=== PATIENT | female | born 1935 | race Caucasian/White ===

== ENCOUNTER → 2017-01-16 13:21 | Outpatient (CLI) | payer MEDICARE, OTHER ==
[2014-11-21 12:39] VITALS: BMI 18.4
[~2017-01-16 13:21] MED LIST: ALDACTONE25 MG PO; ALEVE220 MG PO; ASPIRIN EC81 M1 PO; ASPIRIN325 MG PO; BAYER CHEWABLE81 MG PO; BETAPACE 80 MG80 MG PO; CLEOCIN HCL300 MG PO; COREG 3.1253.125 MG PO; HYDROCODON-ACE1 EAC7 PO; LANOXIN125 MCG PO; LASIX20 MG PO; LOPRESSOR25 MG; PLAVIX75 MG PO; PRILOSEC20 MG PO; ULTRAM50 MG PO; XARELTO10 MG PO; XARELTO15 MG PO
== END | disposition home or self-care (01) ==
LOC: D.CT 13:21
DX: I65.29 Occlusion and stenosis of unspecified carotid artery (principal)

== ENCOUNTER 2017-08-03 19:55 | Inpatient (IN) | payer MEDICARE, OTHER ==
[~2017-08-03] VITALS: Ht 160 cm; Wt 48.5 kg
--- NOTE | ~2017-08-03 | CN ---
PATIENT NAME:NOEL LEBRON MEDICAL RECORD: [id number] : 31 LOCATION:D.[facility] ADMIT DATE: 08/03/17 ACCOUNT: [id number] CONSULTING PHYSICIAN: BARRY RIOS MD REFERRING PHYSICIAN: DON BENNETT MD DATE OF CONSULTATION: 08/06/2017 HISTORY OF PRESENT ILLNESS: This is an 82-year-old female who fell and broke her hip at home. She had some confusion and had a head CT on admission. Head CT demonstrated a right frontal calcified mass consistent with meningioma and right to left midline shift. She had no apparent neurologic deficit from the meningioma and orthopedics was consulted and she was taken to the operating room for surgery. PAST MEDICAL HISTORY: Includes [place], coronary artery disease, coronary artery bypass graft times 4, atrial fibrillation, currently everyday tobacco use and ethanol. REVIEW OF SYSTEMS: Negative. ALLERGIES: CELEBREX AND HYDROCODONE. CURRENT MEDICATIONS: Plavix 75 mg p.o. daily and Lasix 20 mg p.o. daily. FAMILY HISTORY: No known family history. PAST SURGICAL HISTORY: Cataracts, hysterectomy, coronary artery bypass graft times 4. PHYSICAL EXAMINATION: NEUROLOGIC: Alert and oriented times 2. Cranial nerves II-XII were intact. Motor strength is 5/5 and equal in all 4 extremities to detailed testing. DTRs are 2+ and equal over biceps, triceps, patellar, and Achilles. NECK: Shows full range of motion, nontender. ABDOMEN: Soft, nontender, nondistended. LABORATORY DATA: Head CT demonstrates a 4.5 cm calcified right frontal mass with compression of the right frontal lobe and right to left midline shift approximately 0.5 cm with mild surrounding edema in the right hip, status post open reduction internal fixation. IMPRESSION: Right frontal calcified meningioma status post right ORIF of a hip fracture. PLAN: She is to follow up with me in 6 weeks' time with an MRI of the brain with and without contrast, I will see her on an outpatient basis. Thank you for the consultation. TRANSINT:[id number] Voice Confirmation ID: [id number] DOCUMENT ID: [id number] CONSULT REPORT [id number] NOEL LEBRON Dax BARRY RIOS MD at 1134 CC: [id number] DICTATION DATE: 08/06/171818 DENTIST: 08/06/173 ADM IN [facility] [address] [place] [address]
--- NOTE | ~2017-08-03 | OP ---
PATIENT NAME: NOEL LEBRON MEDICAL RECORD: [id number] :33 LOCATION:D.MS [facility] ADMISSION DATE:08/03/17 SURGEON: BANG TOTH MD DATE OF OPERATION: 08/05/2017 PREOPERATIVE DIAGNOSIS: Displaced right hip fracture, femoral neck. POSTOPERATIVE DIAGNOSIS: Displaced right hip fracture, femoral neck. PROCEDURE: Bipolar endoprosthetic replacement for displaced right hip femoral neck fracture. SURGEON: Bang Toth MD ANESTHESIA: General. INTRAOPERATIVE COMPLICATIONS: None. SUMMARY OF PATHOLOGIC FINDINGS: The patient has a completely displaced femoral neck fracture consistent with preoperative diagnosis. IMPLANTS USED: Francesca Anato hip system, size 4 stem, -3 x 26 inner head with a size 45 outer head. OPERATIVE SUMMARY IN DETAIL: After obtaining the appropriate preoperative orthopedic surgery consent as well as anesthetic consultation, evaluation and clearance, the patient was brought to the operating room and placed on the operating room table in supine position. After adequate general laryngeal mask airway was administered, the patient was placed in left lateral decubitus position. All pressure points were well padded. She was held firmly to the operating table using the vacuum pack suction system. Right lower extremity and hip were then prepped and draped in a routine sterile fashion. Curvilinear incision was made over the greater trochanter, taken down to level of IT band. It was split in line with fibers of the IT band to reveal gluteus medius and minimus attachment. This reflected the gluteus medius and minimus reflected anteriorly revealing the hip capsule, split in T-type capsule revealing fracture hematoma. Split T-type capsule, through the split capsule was then visualized femoral neck fracture. Femoral neck cut was made using the femoral neck cutting guide for the Anato system. All fragments were removed. At this point, the power corkscrew was used to evacuate the femoral head from the acetabulum. This was used for the appropriate measurements for replacement. Copiously irrigation was utilized to wash out the acetabulum of all fragments. Attention was then turned to the proximal femur. After punching and reaming, it was felt that a size 4 Anato hip was the most appropriate. This was tamped into place. Trials were undertaken and it was felt that the -3 was the most appropriate for leg length and maintenance. The bipolar and inner bone were articulated, tamped on the Baez taper and the hip was reduced. Intraoperative radiographs were taken and showed excellent position and placement of all components. Wounds were copiously irrigated. The hip capsule was closed with #2 Ethibond followed by #5 transosseous reapproximation of the gluteus medius and minimus back to the greater trochanter. The IT band was closed with #2 Ethibond. This was followed by #1 Vicryl, 2-0 Vicryl and Zip tie suture. Having completed this, the patient was awakened and taken to the recovery room in stable condition. All final needle and sponge counts were correct. OPERATIVE REPORT [id number] NOEL LEBRON TRANSINT:[id number] Voice Confirmation ID: [id number] DOCUMENT ID: [id number] NAVNEET TRIVEDI, BANG ESTRADA at 1808 CC: [id number] DICTATION DATE: 08/05/17 1529 ACADEMIC ASSOCIATE: 08/05/17 1622 ADM IN [facility] [address] [place] [address]
--- NOTE | ~2017-08-03 | EC ---
PATIENT:NOEL LEBRON DATE OF SERVICE: 08/03/17 SEX: F MEDICAL RECORD: [id number] DATE OF : 31 LOCATION:D.[facility] AGE OF PATIENT: 82 ADMISSION DATE: 08/03/17 REFERRING PHYSICIAN: INTERPRETING PHYSICIAN: LINDA JOSEPH MD ECHOCARDIOGRAM REPORT ECHO CHARGES 4 ECHO COMPLETE DATE: CLINICAL DIAGNOSIS: PRE-OP ECHOCARDIOGRAPHIC MEASUREMENTS (adult normal given) AC root (d.<3.7cm) 2.4 cm LV Septum d (<1.2 cm> 0.7 cm Valve Excursion 1.8 cm LV Septum (systole) 1.1 cm Left Atria (s.<4.0cm> 3.7 cm LVPW d(<1.2cm) 1.1 cm RV (d.<2.3cm) 2.5 cm LVPW (sytole) 1.5 cm LV diastole(<5.6CM) 4.0 cm MV E-F(>70mm/sec) cm LV systole 2.3 cm LVOT Diameter 1.6 cm MV exc.(>10mm) cm Est.ejection fraction (50-75%) % DOPPLER: LVIT cm/sec A 52.0 cm/sec E 90.0 cm/sec LA cm/sec RVSP 39.0 mmHg LVOT 80.0 cm/sec AOP1/2T m/s Asc. Ao 133 cm/sec RVOT 72.0 cm/sec RA cm/sec PA 98.0 cm/sec AV Gradient Peak 7.1 mmHg AV Mean 3.3 mmHg AV Area 1.3 cm MV Gradient Peak 5.8 mmHg MV Mean 2.4 mmHg MV Area cm COMMENTS: Electronic Scale Assembler And Tester: Myranda MOSEROE Steam Train Driver: Elmer Joseph TAPE# PACS Pericardial Effusion N DATE OF SERVICE: 08/05/2017 PROCEDURE: Transthoracic echocardiogram. FINDINGS: 1. Left ventricle shows an EF of 35% to 40%. There appears to be apical anterior and apical inferior hypokinesis, also lateral hypokinesis. 2. The left atrium is shown to have normal size, normal function. 3. The aortic valve is normal. 4. The mitral valve is normal. ECHOCARDIOGRAM REPORT [id number] NOEL LEBRON 5. The tricuspid valve has moderate tricuspid regurgitation with an RVSP of 39 mmHg. 6. The right ventricle is normal size, normal function. 7. The right atrium is mildly dilated. 8. The pulmonic valve is normal. CONCLUSION: The patient has evidence of regional wall motion abnormalities that would be consistent with ischemic coronary disease. EF is moderately reduced in the 35% to maybe as much as 40% range. There is somewhat asynchronous wall motion due to possible bundle branch block. TRANSINT:[id number] Voice Confirmation ID: [id number] DOCUMENT ID: [id number] LINDA JOSEPH MD at 0924 CC: [id number] DICTATION DATE: 08/05/17 0950 LEATHER SCRUBBER: 08/05/17 1124 ADM IN [address] [place] [address]
[2017-08-03 21:24] LABS: BASOPHILS 0.1 % (0-2); EOSINOPHILS 0 % (0-7); HEMATOCRIT 32.7 % (36.0-48.0); IMMATURE GRANULOCYTES 0.2 % (0-5); LYMPHOCYTES 7.8 % (15-50); MCH 32.1 pg (26.0-34.0); MCHC 33.6 g/dL (31.0-37.0); MCV 95.3 fL (80.0-100.0); MEAN PLATELET VOLUME 10.1 fL (7.4-10.4); MONOCYTES 12.2 % (2-11); NEUTROPHILS 79.7 % (40-80); PLATELET COUNT 225 10x3/uL (130-400); RBC 3.43 10x6/uL (4.00-5.40); RDW 13.7 % (11.5-14.5); WBC 9.7 10x3/uL (4.8-10.8)
[2017-08-03 21:34] LABS: APTT 24.3 SECONDS (22.8-39.4); INR 1.13 (0.85-1.17); PROTIME 14.1 SECONDS (11.6-15.0)
[2017-08-03 21:39] LABS: ALKALINE PHOSPHATASE 107 U/L (46-116); ALT (SGPT) 31 U/L (10-68); BILIRUBIN - TOTAL 1.37 mg/dL (0.2-1.3); CALC OSMOLALITY 275 mosm/kg (275-300); CALCIUM 9.4 mg/dL (8.5-10.1); CARBON DIOXIDE 26.9 mmol/L (21.0-32.0); CHLORIDE - SERUM 100 mmol/L (98-107); GLUCOSE 142 mg/dL (74-106); POTASSIUM - SERUM 3.9 mmol/L (3.5-5.1); PROTEIN - SERUM 8.3 g/dL (6.4-8.2); SODIUM 136 mmol/L (136-145); UREA NITROGEN 19 mg/dL (7-18); eGFR NON AFRICAN AMERICAN 56 mL/min (90-120)
[2017-08-03 22:00] LABS: CKMB 16.1 U/L (0.0-3.6); CREATINE KINASE 1191 UL (21-215); TROPONIN-I < 0.017 ng/mL (0.000-0.060)
[2017-08-03 23:17] LABS: APPEARANCE CLEAR (CLEAR); COLOR YELLOW (YELLOW); GLUCOSE NEGATIVE (NEGATIVE); KETONE SMALL mg/dL (NEGATIVE); NITRITE NEGATIVE (NEGATIVE); PROTEIN NEGATIVE (NEGATIVE); UROBILINOGEN NORMAL (NORMAL)
[2017-08-03 23:18] LABS: BILIRUBIN NEGATIVE (NEGATIVE)
[2017-08-03 23:21] VITALS: BP 137/65; BMI 18.9
[2017-08-04 00:46] VITALS: BP 137/65
[2017-08-04 05:19] VITALS: BP 139/86
[2017-08-04 08:08] VITALS: BP 139/80
[2017-08-04 09:15] LABS: BASOPHILS 0.1 % (0-2); EOSINOPHILS 0 % (0-7); HEMATOCRIT 32.6 % (36.0-48.0); HEMOGLOBIN 10.6 g/dL (12-16); IMMATURE GRANULOCYTES 0.2 % (0-5); LYMPHOCYTES 12.7 % (15-50); MCH 31.4 pg (26.0-34.0); MCHC 32.5 g/dL (31.0-37.0); MCV 96.4 fL (80.0-100.0); MEAN PLATELET VOLUME 10.1 fL (7.4-10.4); MONOCYTES 12.1 % (2-11); NEUTROPHILS 74.9 % (40-80); PLATELET COUNT 205 10x3/uL (130-400); RBC 3.38 10x6/uL (4.00-5.40); RDW 13.9 % (11.5-14.5)
[2017-08-04 09:27] LABS: ANION GAP 13.3 mmol/L (8-16); CALCIUM 8.6 mg/dL (8.5-10.1); POTASSIUM - SERUM 4.3 mmol/L (3.5-5.1)
[2017-08-04 11:52] VITALS: BP 129/71
[2017-08-04 15:29] VITALS: BP 130/70
[2017-08-04 20:00] VITALS: BP 112/67
[2017-08-05] VITALS (12 sets, daily range): BP systolic 105–130; BP diastolic 47–75; Ht 160 cm; Wt 48.5 kg
[2017-08-05 04:36] LABS: BASOPHILS 0.1 % (0-2); EOSINOPHILS 0.3 % (0-7); HEMATOCRIT 31.1 % (36.0-48.0); HEMOGLOBIN 9.9 g/dL (12-16); IMMATURE GRANULOCYTES 0.3 % (0-5); LYMPHOCYTES 16.4 % (15-50); MCH 30.8 pg (26.0-34.0); MCHC 31.8 g/dL (31.0-37.0); MCV 96.9 fL (80.0-100.0); MEAN PLATELET VOLUME 10.3 fL (7.4-10.4); MONOCYTES 11.9 % (2-11); PLATELET COUNT 192 10x3/uL (130-400); RBC 3.21 10x6/uL (4.00-5.40); RDW 14.1 % (11.5-14.5); WBC 9.5 10x3/uL (4.8-10.8)
[2017-08-05 04:48] LABS: ALBUMIN 2.9 g/dL (3.4-5.0); ANION GAP 13.8 mmol/L (8-16); BILIRUBIN - TOTAL 1.03 mg/dL (0.2-1.3); CREATININE - SERUM 0.9 mg/dL (0.6-1.3); POTASSIUM - SERUM 3.8 mmol/L (3.5-5.1); PROTEIN - SERUM 6.7 g/dL (6.4-8.2)
[2017-08-06] VITALS (7 sets, daily range): BP systolic 114–129; BP diastolic 66–83
[2017-08-06 04:34] LABS: BASOPHILS 0 % (0-2); EOSINOPHILS 0 % (0-7); HEMATOCRIT 29.1 % (36.0-48.0); HEMOGLOBIN 9.5 g/dL (12-16); IMMATURE GRANULOCYTES 0.1 % (0-5); LYMPHOCYTES 7.4 % (15-50); MCH 31.6 pg (26.0-34.0); MCHC 32.6 g/dL (31.0-37.0); MCV 96.7 fL (80.0-100.0); MEAN PLATELET VOLUME 10.3 fL (7.4-10.4); NEUTROPHILS 82.5 % (40-80); PLATELET COUNT 196 10x3/uL (130-400); RBC 3.01 10x6/uL (4.00-5.40); RDW 13.6 % (11.5-14.5); WBC 7.4 10x3/uL (4.8-10.8)
[2017-08-06 05:20] LABS: ALBUMIN 2.6 g/dL (3.4-5.0); ANION GAP 17.6 mmol/L (8-16); CALCIUM 8.1 mg/dL (8.5-10.1); CARBON DIOXIDE 19.8 mmol/L (21.0-32.0); CREATININE - SERUM 0.9 mg/dL (0.6-1.3); PROTEIN - SERUM 6.8 g/dL (6.4-8.2)
[2017-08-06 05:23] LABS: POTASSIUM - SERUM 4.4 mmol/L (3.5-5.1)
[2017-08-07 05:03] VITALS: BP 124/74
[2017-08-07 05:08] LABS: BASOPHILS 0.1 % (0-2); EOSINOPHILS 0 % (0-7); HEMATOCRIT 28.1 % (36.0-48.0); HEMOGLOBIN 9.2 g/dL (12-16); IMMATURE GRANULOCYTES 0.2 % (0-5); LYMPHOCYTES 15.4 % (15-50); MCH 31.3 pg (26.0-34.0); MCHC 32.7 g/dL (31.0-37.0); MCV 95.6 fL (80.0-100.0); MONOCYTES 18.3 % (2-11); RBC 2.94 10x6/uL (4.00-5.40); RDW 13.6 % (11.5-14.5); WBC 8.9 10x3/uL (4.8-10.8)
[2017-08-07 05:10] LABS: PLATELET COUNT 247 10x3/uL (130-400)
[2017-08-07 05:33] LABS: ALBUMIN 2.8 g/dL (3.4-5.0); ANION GAP 14.3 mmol/L (8-16); BILIRUBIN - TOTAL 0.8 mg/dL (0.2-1.3); CALCIUM 8.5 mg/dL (8.5-10.1); CARBON DIOXIDE 22.7 mmol/L (21.0-32.0); CREATININE - SERUM 0.9 mg/dL (0.6-1.3); PROTEIN - SERUM 7.2 g/dL (6.4-8.2)
[2017-08-07 09:22] VITALS: BP 130/76
[2017-08-07 12:44] VITALS: BP 133/79
[2017-08-07 16:36] VITALS: BP 119/78
[2017-08-07 20:00] VITALS: BP 130/73
[2017-08-08] VITALS: BP 130/76
[2017-08-08 04:00] VITALS: BP 118/67
[2017-08-08 04:46] LABS: BASOPHILS 0 % (0-2); EOSINOPHILS 0.2 % (0-7); HEMATOCRIT 25.8 % (36.0-48.0); HEMOGLOBIN 8.4 g/dL (12-16); IMMATURE GRANULOCYTES 0.2 % (0-5); LYMPHOCYTES 17.3 % (15-50); MCH 31.2 pg (26.0-34.0); MCHC 32.6 g/dL (31.0-37.0); MCV 95.9 fL (80.0-100.0); MEAN PLATELET VOLUME 9.6 fL (7.4-10.4); MONOCYTES 17.6 % (2-11); NEUTROPHILS 64.7 % (40-80); PLATELET COUNT 234 10x3/uL (130-400); RBC 2.69 10x6/uL (4.00-5.40); RDW 13.6 % (11.5-14.5); WBC 8.8 10x3/uL (4.8-10.8)
[2017-08-08 05:04] LABS: ALBUMIN 2.4 g/dL (3.4-5.0); ALKALINE PHOSPHATASE 94 U/L (46-116); ALT (SGPT) 20 U/L (10-68); BILIRUBIN - TOTAL 0.75 mg/dL (0.2-1.3); CALC OSMOLALITY 282 mosm/kg (275-300); CARBON DIOXIDE 26.2 mmol/L (21.0-32.0); CHLORIDE - SERUM 106 mmol/L (98-107); CREATININE - SERUM 0.7 mg/dL (0.6-1.3); GLUCOSE 123 mg/dL (74-106); POTASSIUM - SERUM 4.2 mmol/L (3.5-5.1); PROTEIN - SERUM 6.5 g/dL (6.4-8.2); SODIUM 139 mmol/L (136-145); UREA NITROGEN 24 mg/dL (7-18); eGFR NON AFRICAN AMERICAN 84 mL/min (90-120)
[2017-08-08 08:29] VITALS: BP 122/69
[2017-08-08 12:51] VITALS: BP 131/74
[2017-08-08] MEDS ORDERED: PROTONIX40 MG PO (20:50)
[2017-08-08] MEDS ORDERED: MULTIPLE VITAMI1 TA1 PO (20:50)
[2017-08-08] MEDS ORDERED: ACETAMINOPHEN325 MG PO (20:52)
[2017-08-08] MEDS ORDERED: VITAMIN B-1100 M1 PO (20:52)
[2017-08-08] MEDS ORDERED: ULTRAM50 MG PO (20:53)
== END 2017-08-08 19:58 | DRG 470 ==
LOC: D.ER 19:55 → D.MS 22:04
PROVIDERS: Family Medicine Adult Medicine; Nurse Practitioner Family; Orthopaedic Surgery; Orthopaedic Surgery Foot and Ankle Surgery
PROC: 0SRR0JZ Replacement of Right Hip Joint, Femoral Surface with Synthetic Substitute, Open Approach (ICD-10-PCS; principal; 2017-08-05 13:05)
DX: S72.001A Fracture of unspecified part of neck of right femur, initial encounter for closed fracture (principal); M80.851A Other osteoporosis with current pathological fracture, right femur, initial encounter for fracture; D62 Acute posthemorrhagic anemia; F17.203 Nicotine dependence unspecified, with withdrawal; W19.XXXA Unspecified fall, initial encounter; S00.03XA Contusion of scalp, initial encounter; S00.431A Contusion of right ear, initial encounter; D32.0 Benign neoplasm of cerebral meninges; I25.10 Atherosclerotic heart disease of native coronary artery without angina pectoris; I48.91 Unspecified atrial fibrillation; Z95.1 Presence of aortocoronary bypass graft; F10.20 Alcohol dependence, uncomplicated

== ENCOUNTER 2017-08-08 17:29 | Inpatient (IN) | payer MEDICARE, OTHER ==
[~2017-08-08] VITALS: Ht 160 cm; Wt 55.0 kg
--- NOTE | ~2017-08-08 | RHP ---
PATIENT: NOEL LEBRON MEDICAL RECORD: [id number] ACCOUNT: [id number] [facility] ADMISSION DATE: 08/08/17 REHABILITATION HISTORY AND PHYSICAL EXAMINATION POST ADMISSION PHYSICIAN EXAMINATION POST-ADMISSION PHYSICAL EXAMINATION AND HISTORY AND PHYSICAL DATE OF ADMISSION: 08/08/2017 ADMITTING DIAGNOSES: Rhabdomyolysis, status post fall resulting in a right femoral neck fracture. HISTORY OF PRESENT ILLNESS: The patient was admitted to the inpatient rehab for rhabdomyolysis secondary to a right femoral neck fracture. She is an 82-year-old female patient, who fell and broke her hip at home, was found approximately 24 hours later. She had some confusion. Head CT on admission was done on 08/03. It demonstrated a right frontal calcified mass consistent with a meningioma and right to left midline shift. She had no apparent neurological deficit from the meningioma. Neurosurgery was consulted, has seen the patient and will follow as an outpatient basis. She underwent a right hip bipolar due to displaced right hip fracture. She has got a past medical history of VA, coronary artery disease, coronary artery bypass grafting, AFib. She does continue to use tobacco and has an occasional glass of wine. She has had some postop complications including blood loss anemia, confusion from anesthesia, increased pain. She is on 2 liters of O2 via nasal cannula. She has got a Mercedes catheter. 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 She lives alone, was independent with ADLs prior to fall. She is set up for max assist with her ADLs, total assist for mobility. She and her family plan to return her home with as close to her prior level of functioning as possible. Comorbidities include rhabdo, a meningioma, history of coronary artery bypass grafting, hypothyroidism, AFib, history of nicotine dependence, coronary artery disease, acute blood loss anemia, multilevel degenerative disc disease in her back. PAST MEDICAL HISTORY: Significant for VA, coronary artery disease, coronary artery bypass graft, AFib, nephrectomy, arthritis, chronic back pain, thyroid problems, tobacco use, and history of wine use or alcohol use. PAST SURGICAL HISTORY: Includes cataracts, coronary artery bypass grafting, hysterectomy, cardioversion, and nephrectomy. ALLERGIES: HYDROCODONE AND CELEBREX. CURRENT MEDICATIONS: Include thiamine 100 mg daily. She is on multivitamin daily, Protonix 40 mg daily, Lasix 20 mg daily, polyethylene glycol 17 grams in 8 ounces of water daily, Ultram 50 mg daily. She is on Tylenol 650 mg every 4 hours p.r.n. and Colace 100 mg b.i.d. HABITS: No current alcohol or tobacco use. There is a history of tobacco use at home and also drinking some wine. FAMILY HISTORY: Noncontributory. SOCIAL HISTORY: The patient hopes to return back home and get back to her prior HISTORY AND PHYSICAL [id number] NOEL LEBRON level of functioning. REVIEW OF SYSTEMS: GENERAL: Does complain of some weakness. HEENT: Denies cold, cough, or congestion. CARDIOVASCULAR: Denies chest pain. PHYSICAL EXAMINATION: VITAL SIGNS: Stable, afebrile. GENERAL: A well-developed, friendly female, in no acute distress upon exam. HEENT: Normocephalic and atraumatic. Mucosa moist. NECK: Supple. No lymphadenopathy. LUNGS: Clear at this time. HEART: Regular rate and rhythm. ABDOMEN: Benign. EXTREMITIES: Consistent with hip surgery. NEUROLOGIC: She is intact. LABORATORY DATA: Her white count is 8.0, H&H of 8.5 and 26.4, and platelet count was noted to be 276. Sodium 141, potassium 4.3, BUN and creatinine of 26 and 0.8, blood sugar is noted to be 83. ASSESSMENT: This is an 82-year-old female patient admitted to rehab with a working diagnosis of rhabdomyolysis secondary to a fall and also a bipolar hip replacement. The patient has potential to make improvement. We will institute the following multidisciplinary therapies including, but not limited to physical, occupational, respiratory, speech, nutritional services, prosthetics and orthotics. Given her complex condition and risk for more complications, rehabilitation services cannot be provided at a low level of care such as a residential facility. PLAN: 1. Admit to [facility] for intensive inpatient therapy to include the following disciplines: A. Physical therapy to improve gait, all transfer skills and bed mobility to a modified independent level. B. Occupational therapy to improve activities of daily living to a modified independent level. C. Case management to assist with discharge planning and placement options. D. Nutrition to assist with nutritional needs. E. Rehabilitation nursing to assist in monitoring the patient's underlying medical conditions and to assist with any type of bowel or bladder management. 2. The patient's current medications and medical care will be continued. 3. The patient will be placed on standard fall precautions. 4. The patient's estimated length of stay is approximately 7-10 days. 5. Discuss this patient during care team staff meeting this week. TRANSINT:[id number] Voice Confirmation ID: [id number] DOCUMENT ID: [id number] VINCE notes whether there has been none or any medical/functional change since admission: - No Change since the PAS HISTORY AND PHYSICAL [id number] NOEL LEBRON attests patient continues to be appropriate for IRF: - Continues to be appropriate for the IRF CHUCK BUNDY MD at 1344 CC: [id number] DICTATION DATE: 08/09/17 0837 REGULATOR INSPECTOR: 08/09/17 1053 ADM IN [facility] [id number] [place] [address]
[2017-08-08] MEDS ORDERED: PROTONIX40 MG PO (20:50)
[2017-08-08] MEDS ORDERED: MULTIPLE VITAMI1 TA1 PO (20:50)
[2017-08-08] MEDS ORDERED: VITAMIN B-1100 M1 PO (20:52)
[2017-08-08] MEDS ORDERED: ACETAMINOPHEN325 MG PO (20:52)
[2017-08-08] MEDS ORDERED: ULTRAM50 MG PO (20:53)
[2017-08-08 21:34] VITALS: BP 124/74; BMI 21.5
[2017-08-09 06:25] LABS: BASOPHILS 0.3 % (0-2); EOSINOPHILS 2.4 % (0-7); HEMATOCRIT 26.4 % (36.0-48.0); HEMOGLOBIN 8.5 g/dL (12-16); IMMATURE GRANULOCYTES 0.3 % (0-5); LYMPHOCYTES 26.6 % (15-50); MCH 31.5 pg (26.0-34.0); MCHC 32.2 g/dL (31.0-37.0); MCV 97.8 fL (80.0-100.0); MEAN PLATELET VOLUME 9.6 fL (7.4-10.4); MONOCYTES 17.5 % (2-11); NEUTROPHILS 52.9 % (40-80); PLATELET COUNT 276 10x3/uL (130-400); RDW 13.9 % (11.5-14.5)
[2017-08-09 07:05] LABS: ANION GAP 14.4 mmol/L (8-16); CALCIUM 8.2 mg/dL (8.5-10.1); CARBON DIOXIDE 25.9 mmol/L (21.0-32.0); CREATININE - SERUM 0.8 mg/dL (0.6-1.3); POTASSIUM - SERUM 4.3 mmol/L (3.5-5.1)
[2017-08-09 08:14] VITALS: BP 123/76
[2017-08-09 12:11] VITALS: Ht 160 cm; Wt 55.0 kg
[2017-08-09 21:25] VITALS: BP 123/68
[2017-08-10] VITALS (11 sets, daily range): BP systolic 106–139; BP diastolic 55–86
[2017-08-10 05:12] LABS: BASOPHILS 0.3 % (0-2); EOSINOPHILS 3.1 % (0-7); HEMATOCRIT 25.5 % (36.0-48.0); HEMOGLOBIN 8.1 g/dL (12-16); IMMATURE GRANULOCYTES 0.4 % (0-5); LYMPHOCYTES 25.1 % (15-50); MCH 30.7 pg (26.0-34.0); MCHC 31.8 g/dL (31.0-37.0); MCV 96.6 fL (80.0-100.0); MEAN PLATELET VOLUME 9.9 fL (7.4-10.4); MONOCYTES 18.2 % (2-11); NEUTROPHILS 52.9 % (40-80); PLATELET COUNT 310 10x3/uL (130-400); RBC 2.64 10x6/uL (4.00-5.40); RDW 13.9 % (11.5-14.5); WBC 7.9 10x3/uL (4.8-10.8)
[2017-08-10 05:40] LABS: ANION GAP 11.2 mmol/L (8-16); CARBON DIOXIDE 27.9 mmol/L (21.0-32.0); CREATININE - SERUM 0.8 mg/dL (0.6-1.3); POTASSIUM - SERUM 4.1 mmol/L (3.5-5.1); THYROID STIMULATING HORMONE 3.65 uIU/mL (0.36-3.74)
[2017-08-11 08:00] VITALS: BP 123/74
[2017-08-11 20:40] VITALS: BP 133/83
[2017-08-12 08:26] VITALS: BP 117/70
[2017-08-12 19:45] VITALS: BP 132/61
[2017-08-13 08:04] VITALS: BP 129/71
[2017-08-13 20:00] VITALS: BP 120/71
[2017-08-14 06:45] LABS: ANION GAP 11.3 mmol/L (8-16); CALCIUM 8.2 mg/dL (8.5-10.1); CARBON DIOXIDE 26.8 mmol/L (21.0-32.0); CREATININE - SERUM 1.2 mg/dL (0.6-1.3); POTASSIUM - SERUM 4.1 mmol/L (3.5-5.1)
[2017-08-14 06:46] LABS: BASOPHILS 0.2 % (0-2); EOSINOPHILS 2.3 % (0-7); HEMOGLOBIN 9.4 g/dL (12-16); IMMATURE GRANULOCYTES 0.4 % (0-5); LYMPHOCYTES 17.7 % (15-50); MCH 30.1 pg (26.0-34.0); MCHC 32.4 g/dL (31.0-37.0); MCV 92.9 fL (80.0-100.0); MEAN PLATELET VOLUME 9.7 fL (7.4-10.4); MONOCYTES 12.5 % (2-11); NEUTROPHILS 66.9 % (40-80); RBC 3.12 10x6/uL (4.00-5.40); RDW 14.4 % (11.5-14.5); WBC 9.7 10x3/uL (4.8-10.8)
[2017-08-14 06:50] LABS: PLATELET COUNT 405 10x3/uL (130-400)
[2017-08-14 11:13] VITALS: BP 167/89
[2017-08-14 21:30] VITALS: BP 123/75
[2017-08-15 08:00] VITALS: BP 103/55
[2017-08-15 21:30] VITALS: BP 123/60
[2017-08-16 06:30] LABS: BASOPHILS 0.1 % (0-2); EOSINOPHILS 2.9 % (0-7); HEMOGLOBIN 9.2 g/dL (12-16); IMMATURE GRANULOCYTES 0.1 % (0-5); LYMPHOCYTES 17.4 % (15-50); MCH 30.7 pg (26.0-34.0); MCHC 32.9 g/dL (31.0-37.0); MCV 93.3 fL (80.0-100.0); MEAN PLATELET VOLUME 9.4 fL (7.4-10.4); MONOCYTES 14.5 % (2-11); PLATELET COUNT 397 10x3/uL (130-400); RDW 14.3 % (11.5-14.5)
[2017-08-16 06:44] LABS: ANION GAP 11.7 mmol/L (8-16); CALCIUM 8.2 mg/dL (8.5-10.1); CARBON DIOXIDE 25.9 mmol/L (21.0-32.0); CREATININE - SERUM 1.5 mg/dL (0.6-1.3); POTASSIUM - SERUM 3.6 mmol/L (3.5-5.1)
[2017-08-16 08:00] VITALS: BP 125/68
[2017-08-16 19:45] VITALS: BP 115/46
[2017-08-17 12:37] VITALS: BP 103/56
[2017-08-17 20:15] VITALS: BP 117/75
[2017-08-18 10:05] VITALS: BP 121/70
[2017-08-18 19:35] VITALS: BP 124/77
[2017-08-19 06:31] LABS: BASOPHILS 0.5 % (0-2); EOSINOPHILS 2.8 % (0-7); HEMOGLOBIN 9.5 g/dL (12-16); IMMATURE GRANULOCYTES 0.2 % (0-5); LYMPHOCYTES 29.4 % (15-50); MCH 29.9 pg (26.0-34.0); MCHC 31.7 g/dL (31.0-37.0); MCV 94.3 fL (80.0-100.0); MEAN PLATELET VOLUME 9.6 fL (7.4-10.4); MONOCYTES 12.2 % (2-11); NEUTROPHILS 54.9 % (40-80); PLATELET COUNT 472 10x3/uL (130-400); RBC 3.18 10x6/uL (4.00-5.40); RDW 14.3 % (11.5-14.5); WBC 6.4 10x3/uL (4.8-10.8)
[2017-08-19 06:45] LABS: ANION GAP 14.3 mmol/L (8-16); CALCIUM 8.4 mg/dL (8.5-10.1); CARBON DIOXIDE 24.5 mmol/L (21.0-32.0); CREATININE - SERUM 1.2 mg/dL (0.6-1.3); POTASSIUM - SERUM 3.8 mmol/L (3.5-5.1)
[2017-08-19 08:00] VITALS: BP 134/98
[2017-08-19 19:23] VITALS: BP 116/62
[2017-08-20 08:14] VITALS: BP 114/65
[2017-08-20 19:24] VITALS: BP 121/63
[2017-08-21 08:01] VITALS: BP 136/61
[2017-08-21] MEDS ORDERED: XALATAN 0.0052.5 ML EACH EYE (08:47)
[2017-08-21] MEDS ORDERED: PLAVIX75 MG PO (08:47)
== END 2017-08-21 14:10 | disposition home health service (06) | DRG 558 ==
LOC: D.REHAB 17:29
PROVIDERS: Emergency Medicine
DX: M62.82 Rhabdomyolysis (principal); D62 Acute posthemorrhagic anemia; F17.203 Nicotine dependence unspecified, with withdrawal; S72.001D Fracture of unspecified part of neck of right femur, subsequent encounter for closed fracture with routine healing; W19.XXXD Unspecified fall, subsequent encounter; E03.9 Hypothyroidism, unspecified; I48.91 Unspecified atrial fibrillation; D32.0 Benign neoplasm of cerebral meninges; Z95.1 Presence of aortocoronary bypass graft; I95.89 Other hypotension; F10.20 Alcohol dependence, uncomplicated

== ENCOUNTER → 2019-06-04 14:50 | Outpatient (CLI) | payer MEDICARE, OTHER ==
[2019-05-22 13:52] VITALS: BMI 19.4
[~2019-06-04 14:50] MED LIST changes: +ACETAMINOPHEN325 MG PO; +ASPIRIN81 MG PO; +MULTIPLE VITAMI1 TA1 PO; +PROTONIX40 MG PO; +VITAMIN B-1100 M1 PO; +XALATAN 0.0052.5 ML EACH EYE
== END | disposition home or self-care (01) ==
LOC: D.US 14:50
PROVIDERS: ATTEND Nurse Practitioner Family
DX: R60.0 Localized edema (principal)

== ENCOUNTER 2019-12-01 11:34 | Emergency (ER) | payer MEDICARE, OTHER ==
[~2019-12-01] VITALS: Ht 160 cm; Wt 50.0 kg
[~2019-12-01 11:34] MED LIST changes: +ELIQUIS2.5 MG PO; +LEVAQUIN750 MG PO; +NEXIUM40 MG PO
[2019-12-01 11:45] VITALS: Ht 160 cm; Wt 50.0 kg
[2019-12-01 12:27] LABS: CALC OSMOLALITY 282 mosm/kg (275-300); CALCIUM 9.1 mg/dL (8.5-10.1); CARBON DIOXIDE 27.6 mmol/L (21.0-32.0); CHLORIDE - SERUM 106 mmol/L (98-107); CREATININE - SERUM 1.1 mg/dL (0.6-1.3); GLUCOSE 103 mg/dL (74-106); POTASSIUM - SERUM 3.9 mmol/L (3.5-5.1); SODIUM 140 mmol/L (136-145); UREA NITROGEN 23 mg/dL (7-18); eGFR NON AFRICAN AMERICAN 50 mL/min (90-120)
[2019-12-01 12:32] LABS: BASOPHILS 0.3 % (0-2); HEMATOCRIT 36.4 % (36.0-48.0); HEMOGLOBIN 11.4 g/dL (12-16); IMMATURE GRANULOCYTES 0.1 % (0-5); LYMPHOCYTES 18.9 % (15-50); MCH 28.6 pg (26.0-34.0); MCHC 31.3 g/dL (31.0-37.0); MCV 91.2 fL (80.0-100.0); MEAN PLATELET VOLUME 10.1 fL (7.4-10.4); MONOCYTES 10.5 % (2-11); NEUTROPHILS 69.2 % (40-80); RBC 3.99 10x6/uL (4.00-5.40); RDW 15.1 % (11.5-14.5); WBC 7.7 10x3/uL (4.8-10.8)
[2019-12-01 12:36] LABS: PLATELET COUNT 254 10x3/uL (130-400)
[2019-12-01 12:42] LABS: ALBUMIN 3.6 g/dL (3.4-5.0); ALKALINE PHOSPHATASE 80 U/L (30-120); ALT (SGPT) 11 U/L (10-68); BILIRUBIN - TOTAL 0.77 mg/dL (0.2-1.3); CREATINE KINASE 92 UL (21-215); PROTEIN - SERUM 8.2 g/dL (6.4-8.2); TROPONIN-I < 0.017 ng/mL (0.000-0.060)
[2019-12-01 13:10] LABS: APTT 28.3 SECONDS (22.8-39.4); INR 1.14 (0.85-1.17); PROTIME 14.5 SECONDS (11.6-15.0)
[2019-12-01 13:47] LABS: BILIRUBIN NEGATIVE (NEGATIVE); GLUCOSE NEGATIVE (NEGATIVE); KETONE NEGATIVE (NEGATIVE); NITRITE NEGATIVE (NEGATIVE); UROBILINOGEN NORMAL (NORMAL)
[2019-12-01 13:52] LABS: BACTERIA FEW /hpf (NEGATIVE); EPITHELIAL CELLS 0-5 /hpf (0-5); RED CELLS - URINE 0-5 /hpf (0-5); WHITE CELLS - URINE 0-5 /hpf (NEGATIVE)
[2019-12-01 16:19] VITALS: BP 171/73
== END 2019-12-01 17:56 | disposition home or self-care (01) ==
LOC: D.ER 11:34
PROVIDERS: Family Medicine
DX: I63.9 Cerebral infarction, unspecified (principal); M62.462 Contracture of muscle, left lower leg; F03.90 Unspecified dementia, unspecified severity, without behavioral disturbance, psychotic disturbance, mood disturbance, and anxiety; D32.9 Benign neoplasm of meninges, unspecified; I25.2 Old myocardial infarction; K21.9 Gastro-esophageal reflux disease without esophagitis; R53.1 Weakness